=== PATIENT | male | born 1945 | race Caucasian/White ===

== ENCOUNTER 2016-08-07 00:06 | Inpatient (IN) | payer BC, MEDICARE ==
[~2016-08-07] VITALS: Ht 188 cm; Wt 121.7 kg
[2016-08-07] VITALS (12 sets, daily range): BP systolic 125–153; BP diastolic 61–83
[~2016-08-07 00:06] MED LIST: AMLO10TA4; ASPI325T70 PO; ASPI81TA2 PO; CLON0.1T; CLON0.1T PO; CRESTOR20 MG; CRESTOR20 MG PO; GEMF600T3; LOSA1TAB17; METO100T11; METO200T3 PO; OMEG1CAP43 PO
[2016-08-07] MEDS ORDERED: IV NORMAL SALINE 1000ML BAG 1,000 ML IV SCH (00:23)
[2016-08-07] MEDS ORDERED: ONDANSETRON PF 4 MG/2 ML VIAL. ONE ×2 (00:23→13:55)
[2016-08-07] MEDS ORDERED: MORPHINE SULFATE 4 MG/ML DISP.SYRIN. ONE (00:24)
[2016-08-07] MEDS ORDERED: MORPHINE SULFATE 4 MG/ML DISP.SYRIN. IV ONE (00:30)
[2016-08-07] MEDS ORDERED: ONDANSETRON PF 4 MG/2 ML VIAL. IV ONE (00:30)
[2016-08-07 00:33] LABS: BASO # 0.1 x10^3/uL (0.0-0.2); BASO % 1 % (0-3); EOS % 3 % (0-3); HEMATOCRIT 37.5 % (39.0-53.0); HEMOGLOBIN 12.2 g/dL (13.0-17.5); LYMPH % 17 % (24-48); MEAN CORPUSCULAR HEMOGLOBIN 29 pg (25-35); MEAN CORPUSCULAR HGB CONC 33 g/dL (31-37); MEAN CORPUSCULAR VOLUME 89 fL (79-100); MONO % 11 % (0-9); NEUT % 69 % (31-73); PLATELET COUNT 369 x10^3/uL (140-400)
[2016-08-07 00:36] LABS: BILIRUBIN,URINE NEGATIVE (NEG); GLUCOSE,URINE NEGATIVE (NEG); NITRITE,URINE NEGATIVE (NEG); PH,URINE 5.5; PROTEIN,URINE NEGATIVE (NEG-TRACE); UROBILINOGEN,URINE 0.2 mg/dL (0.2 mg/dL)
[2016-08-07 00:40] LABS: CALCIUM 8.7 mg/dL (8.5-10.1); CREATININE 1.6 mg/dL (0.7-1.3); GFR 42.9; POTASSIUM 4.5 mmol/L (3.5-5.1)
[2016-08-07 00:41] LABS: BACTERIA,URINE 0 /HPF (0-FEW); SQUAMOUS EPITHELIAL CELL,UR FEW /LPF
[2016-08-07 00:46] LABS: ALBUMIN 3.6 g/dL (3.4-5.0); ALBUMIN/GLOBULIN RATIO 0.9 (1.0-1.7); TOTAL BILIRUBIN 0.3 mg/dL (0.2-1.0); TOTAL PROTEIN 7.4 g/dL (6.4-8.2)
--- NOTE | 2016-08-07 01:28 | RAD ---
INDICATION: Abdomen pain. COMPARISON: None TECHNIQUE: Axial CT images obtained through the abdomen and pelvis. Intravenous contrast was not utilized. One or more of the following individualized dose reduction techniques were utilized for this examination: 1. Automated exposure control; 2. Adjustment of the mA and/or kV according to patient size; 3. Use of iterative reconstruction technique. FINDINGS: Abdominal aorta not aneurysmal. Linear opacities in lower lungs partially seen. Sub 4 millimeter nodule right lung base anteriorly. Moderate to severe calcific atherosclerosis. Probable duodenal diverticulum. No intrahepatic bile duct dilation. No peripancreatic edema. Spleen unremarkable. Right UPJ stone, 7-8 millimeters. Bilateral nonobstructive stones with the largest on the left measuring up to 2 cm. Multiple cystic lesions of the bilateral kidneys measuring up to 90 x 68 millimeters on the right. 2-3 millimeter suspected right distal ureter stone. No definite evidence of small bowel obstruction. Bladder largely decompressed Small to moderate fat containing left inguinal hernia. Scattered prominent lymph nodes within the abdomen measuring up to about 1 centimeter short axis. Degenerative changes of spine with posterior decompression changes and spinal fusion at L4-5 with pedicle screws and stabilizing rods. IMPRESSION: There are couple of right-sided ureter stones with right-sided hydronephrosis suspected. Multiple additional nonobstructive renal stones bilaterally. Multiple cystic lesions of the bilateral kidneys. Cannot evaluate for solid complex component on noncontrast imaging. If further clarification is desired dedicated renal protocol ultrasound, CT or MRI could be obtained. Scattered prominent lymph nodes within the abdomen measuring up to about 1 centimeter short axis. Sub 4 millimeter right lung base pulmonary nodule. Electronically signed by: Blas Albarado (Aug 07, 2016 01:26:32)
--- NOTE | 2016-08-07 01:47 | PHYS DOC ---
Past Medical History Past Medical History: COPD, Diabetes-Type II, High Cholesterol, Hypertension Past Surgical History: Other Additional Past Surgical Histo: knee surgery Alcohol Use: None Drug Use: None Adult General Chief Complaint Chief Complaint: FLANK PAIN HPI HPI Patient is a 71 year old gentleman with a history significant for hypertension , diabetes, COPD, kidney stones diagnosed approximately 20 years ago, presents here today complaining of right flank pain 1 day. Patient reports that the pain is colicky. Patient denies any hematuria frequency or urgency. Patient has a dysuria. Patient has any fevers shakes chills nausea vomiting or diarrhea. Patient denies any cough cold runny nose. Patient denies any history of coronary artery disease in the past. Patient denies any prior abdominal surgeries. Patient no longer smokes drinks or does any drugs. Patient is allergic to any medications. Patient reports his primary care physician is Dr. Latesha Pichardo. Patient reports that the pain is colicky in nature. Patient reports that the pain feels similar to his prior kidney stones. Patient's physical exam is significant for tenderness to palpation to his right flank region. Patient's abdomen was soft no rebound or guarding. Patient has normal active bowel sounds. Patient does not present with signs or symptoms of be consistent with an acute surgical abdomen. Patient's ER workup was significant for small amount of RBCs in his urine. Patient had a CT scan of his abdomen pelvis which revealed an 8 mm ureteropelvic junction stone on the right side with a mild to moderate amount of hydronephrosis. Patient was given 4 mg of morphine IV in the ER as well as 1 mg of Dilaudid and 50 mg of IV Toradol and Flomax in the ED with minimal relief in his discomfort. I discussed with the patient the option of discharged home with outpatient evaluation versus being admitted. Patient feels very uncomfortable with the plan to go home given that he is still having a significant amount of abdominal discomfort we will go ahead and admit the patient to the hospital and we will consult Dr. Batista. A/P #1 right flank pain most likely secondary to an 8 mm UPJ stone on the right side. Patient will be admitted to the hospital for pain management and evaluation by urology. Review of Systems Review of Systems Constitutional: Denies fever or chills [] Eyes: Denies change in visual acuity, redness, or eye pain [] HENT: Denies nasal congestion or sore throat [] Respiratory: Denies cough or shortness of breath [] All other review systems are negative except as documented in the history of present illness. Current Medications Current Medications Current Medications Medications (Trade) Dose Ordered Sig/Radha Start Time Stop Time Status Last Admin Dose Admin Morphine Sulfate 4 mg 1X ONCE 08/07/16 00:30 08/07/16 00:32 DC 08/07/16 00:28 4 MG Morphine Sulfate 4 mg 4 mg STK-MED ONCE 08/07/16 00:24 08/07/16 00:25 DC Ondansetron HCl (Zofran) 4 mg 1X ONCE 08/07/16 00:30 08/07/16 00:32 DC 08/07/16 00:27 4 MG Sodium Chloride (Iv Sodium Chloride 0.9% 1000ml Bag) 1,000 ml @ 1,000 mls/hr Q1H 08/07/16 00:23 08/07/16 01:22 DC 08/07/16 00:28 1,000 MLS/HR Allergies Allergies Allergies Coded Allergies Type Severity Reaction Last Updated Verified No Known Drug Allergies 08/03/13 No Physical Exam Physical Exam Constitutional: Well developed, well nourished, no acute distress, non-toxic appearance. [] HENT: Normocephalic, atraumatic, bilateral external ears normal, oropharynx moist, no oral exudates, nose normal. [] Eyes: PERRLA, EOMI, conjunctiva normal, no discharge. [] Neck: Normal range of motion, no tenderness, supple, no stridor. [] Cardiovascular:Heart rate regular rhythm, no murmur [] Lungs & Thorax: Bilateral breath sounds clear to auscultation [] Abdomen: Bowel sounds normal, soft, mild tenderness to palpation right flank tenderness, no masses, no pulsatile masses. [] Skin: Warm, dry, no erythema, no rash. [] Back: Right flank pain. Extremities: No tenderness, no cyanosis, no clubbing, ROM intact, no edema. [] Neurologic: Alert and oriented X 3, normal motor function, normal sensory function, no focal deficits noted. [] Psychologic: Affect normal, judgement normal, mood normal. [] Current Patient Data Vital Signs Vital Signs Date Time Temp Pulse Resp B/P Pulse Ox O2 Delivery O2 Flow Rate FiO2 08/07/16 01:16 62 20 163/93 93 Room Air 08/07/16 00:16 97.5 97.5 Lab Values Laboratory Tests Test 08/07/16 00:10 08/07/16 00:25 Urine Color Yellow Urine Clarity Clear Urine pH 5.5 Urine Specific [place] 1.015 Urine Protein Negativemg/dL (NEG-TRACE) Urine Glucose (UA) Negativemg/dL (NEG) Urine Ketones (Stick) Negativemg/dL (NEG) Urine Blood Moderate (NEG) Urine Nitrite Negative (NEG) Urine Bilirubin Negative (NEG) Urine Urobilinogen Dipstick 0.2mg/dL (0.2 mg/dL) Urine Leukocyte Esterase Negative (NEG) Urine RBC 6-10/HPF (0-2) Urine WBC 1-4/HPF (0-4) Urine Squamous Epithelial Cells Few/LPF Urine Transitional Epithelial Cells Occ/LPF Urine Bacteria 0/HPF (0-FEW) Urine Mucus Mod/LPF White Blood Count 12.0x10^3/uL (4.0-11.0) H Red Blood Count 4.20x10^6/uL (4.30-5.70) L Hemoglobin 12.2g/dL (13.0-17.5) L Hematocrit 37.5% (39.0-53.0) L Mean Corpuscular Volume 89fL (79-100) Mean Corpuscular Hemoglobin 29pg (25-35) Mean Corpuscular Hemoglobin Concent 33g/dL (31-37) Red Cell Distribution Width 15.0% (11.5-14.5) H Platelet Count 369x10^3/uL (140-400) Neutrophils (%) (Auto) 69% (31-73) Lymphocytes (%) (Auto) 17% (24-48) L Monocytes (%) (Auto) 11% (0-9) H Eosinophils (%) (Auto) 3% (0-3) Basophils (%) (Auto) 1% (0-3) Neutrophils # (Auto) 8.3x10^3uL (1.8-7.7) H Lymphocytes # (Auto) 2.0x10^3/uL (1.0-4.8) Monocytes # (Auto) 1.3x10^3/uL (0.0-1.1) H Eosinophils # (Auto) 0.4x10^3/uL (0.0-0.7) Basophils # (Auto) 0.1x10^3/uL (0.0-0.2) Sodium Level 141mmol/L (136-145) Potassium Level 4.5mmol/L (3.5-5.1) Chloride Level 105mmol/L (98-107) Carbon Dioxide Level 26mmol/L (21-32) Anion Gap 10 (6-14) Blood Urea Nitrogen 30mg/dL (8-26) H Creatinine 1.6mg/dL (0.7-1.3) H Estimated GFR (Cockcroft-Gault) 42.9 BUN/Creatinine Ratio 19 (6-20) Glucose Level 136mg/dL (70-99) H Calcium Level 8.7mg/dL (8.5-10.1) Total Bilirubin 0.3mg/dL (0.2-1.0) Aspartate Amino Transferase (AST) 12U/L (15-37) L Alanine Aminotransferase (ALT) 23U/L (16-63) Alkaline Phosphatase 97U/L (46-116) Total Protein 7.4g/dL (6.4-8.2) Albumin 3.6g/dL (3.4-5.0) Albumin/Globulin Ratio 0.9 (1.0-1.7) L Lipase 191U/L (73-393) Laboratory Tests 08/07/16 00:25 Laboratory Tests 08/07/16 00:25 EKG EKG [] Radiology/Procedures Radiology/Procedures [] Course & Med Decision Making Course & Med Decision Making Pertinent Labs and Imaging studies reviewed. (See chart for details) [] Dragon Disclaimer Dragon Disclaimer This electronic medical record was generated, in whole or in part, using a voice recognition dictation system. Departure Departure Impression: Primary Impression: Renal colic Additional Impressions: Intractable abdominal pain Renal colic on right side Hydronephrosis Disposition: ADMITTED INPATIENT Admitting Physician: Nathan Crowder Condition: IMPROVED Referrals: LATESHA PICHARDO MD (PCP) Problem Qualifiers BO ALLRED MD Aug 07, 2016 01:47
[2016-08-07] MEDS ORDERED: KETOROLAC 15 MG/ML VIAL. IV ONE (02:00)
[2016-08-07] MEDS ORDERED: HYDROmorphone 2 MG/ML VIAL IV ONE (02:00)
[2016-08-07] MEDS ORDERED: ACETAMINOPHEN 325 MG TABLET. PO PRN ×2 (02:15→14:00)
[2016-08-07] MEDS ORDERED: TAMSULOSIN 0.4 MG CAP.ER.24H. PO ONE (02:15)
[2016-08-07] MEDS ORDERED: ONDANSETRON PF 4 MG/2 ML VIAL. IV PRN ×3 (02:15→14:00)
--- NOTE | 2016-08-07 02:30 | ACF ---
Admission Forms Criteria RENAL COLIC AND KIDNEY STONES Clinical Indications for Admission to Inpatient Care ( Place 'X' for any and all applicable criteria): Admission is indicated for ANY ONE of the following (1)(2)(3)(4): [X]I. Inpatient admission required rather than observation care (Also use Renal Colic and Kidney Stones: Observation Care Criteria as appropriate) because of ANY ONE of the following: [ ]a) Severe pain requiring acute inpatient management [ ]b) Urinary tract infection identified [ ]c) Vomiting that is severe or persistent [ ]d) IV fluid required rather than oral rehydration to replace significant ongoing (eg, for greater than 24 hours) losses (greater than 200 mL/hr or 3 L/m2 per day) [ ]e) Percutaneous or open drainage (eg, abscess, biliary tract) procedures [X]f) Other condition, treatment or monitoring requiring inpatient admission [ ]II. Impending acute renal failure [ ]III. Bilateral obstruction [ ]IV. Single kidney with obstruction [ ]V. Transplanted kidney with obstruction [ ]. Possible open surgical procedure needed (eg, pyonephrosis, stone removal not amendable to other means) [ ]VII. Hemodynamic instability Extended stay beyond goal length of stay may be needed for(2)(3)(31): [ ]a) Failed initial stone removal (32) [ ]b) Pyonephrosis [ ]c) Obstructive uropathy with urinary tract infection [ ]d) Procedure complications [ ]e) Comorbidities (22) The original [email or web address] content created by [employer] has been revised. The portions of the content which have been revised are identified through the use of italic text or in bold, and [facility] has neither reviewed nor approved the modified material. All other unmodified content is copyright [employer]. Please see references footnoted in the original [employer] edition 2016 Admission Criteria Met?: Yes BRIGITTE SPAIN Aug 07, 2016 02:30
[2016-08-07] MEDS: IV NORMAL SALINE 1000ML BAG 1,000 ML IV SCH ×3 (03:23→19:51)
[2016-08-07] MEDS: FENTANYL PF 100 MCG/2 ML VIAL. IV PRN ×2 (05:36→11:35)
[2016-08-07] MEDS ORDERED: IV RINGERS,LACTATED 1000ML 1,000 ML IV SCH (11:25)
[2016-08-07] MEDS ORDERED: LIDOCAINE 1% 1 ML SYRINGE. ID PRN (11:30)
[2016-08-07] MEDS ORDERED: MORPHINE SULFATE 2 MG/ML DISP.SYRIN. IV PRN (11:30)
[2016-08-07] MEDS ORDERED: PROCHLORPERAZINE 10 MG/2 ML VIAL. IV PRN (11:30)
[2016-08-07] MEDS ORDERED: FENTANYL PF 100 MCG/2 ML VIAL. IV PRN ×2 (11:30)
[2016-08-07] MEDS ORDERED: HYDROmorphone 2 MG/ML VIAL IV PRN (11:30)
[2016-08-07] MEDS ORDERED: IOHEXOL 300 MG/ML 50 ML VIAL. ONE (13:29)
[2016-08-07] MEDS ORDERED: PROPOFOL 20 ML IV ONE (13:55)
[2016-08-07] MEDS ORDERED: FAMOTIDINE 20 MG/2 ML VIAL ONE (13:55)
[2016-08-07] MEDS ORDERED: FENTANYL PF 100 MCG/2 ML VIAL. ONE (13:58)
[2016-08-07] MEDS ORDERED: LIDOCAINE 2% 100 MG/5 ML SYRINGE. ONE (13:59)
[2016-08-07] MEDS ORDERED: ALBUTEROL SULFATE 2.5 MG/3 ML NEBU. NEB PRN (14:00)
[2016-08-07] MEDS ORDERED: hydrALAZINE 20 MG/ML VIAL. IVP PRN (14:00)
[2016-08-07] MEDS ORDERED: HYDROCODONE/APAP 5/325MG TABLET. PO PRN (14:00)
--- NOTE | 2016-08-07 14:03 | PDOC1 ---
History and Physical Past Medical History Cardiovascular: HTN, Hyperlipidemia Pulmonary: COPD Family History Family History: Heart Disease Social History ALCOHOL: none Current Problem List Problem List Problems Medical Problems: (1) Hydronephrosis Status: Acute (2) Intractable abdominal pain Status: Acute (3) Renal colic Status: Acute (4) Renal colic on right side Status: Acute Current Medications Current Medications Current Medications Medications (Trade) Dose Ordered Sig/Radha Start Time Stop Time Status Last Admin Dose Admin Acetaminophen (Tylenol) 650 mg PRN Q4HRS PRN 08/07/16 02:15 08/08/16 02:14 Famotidine (Pepcid) 20 mg STK-MED ONCE 08/07/16 13:55 08/07/16 13:56 DC Fentanyl Citrate (Fentanyl 2ml Vial) 100 mcg STK-MED ONCE 08/07/16 13:58 08/07/16 13:59 DC Fentanyl Citrate 50 mcg 50 mcg PRN Q2HR PRN 08/07/16 02:15 08/08/16 02:14 08/07/16 11:35 50 MCG Hydromorphone HCl (Dilaudid) 0.5 mg PRN Q10MIN PRN 08/07/16 11:30 08/08/16 11:29 Iohexol 50 ml 50 ml STK-MED ONCE 08/07/16 13:29 08/07/16 13:30 DC Ketorolac Tromethamine (Toradol) 15 mg 1X ONCE 08/07/16 02:00 08/07/16 02:01 DC 08/07/16 02:06 15 MG Lactated Ringer's (Iv Lactated Ringers) 1,000 ml @ 30 mls/hr Q24H 08/07/16 11:25 08/07/16 23:24 Lidocaine HCl 2 ml PRN 1X PRN 08/07/16 11:30 08/08/16 11:29 Morphine Sulfate 1 mg 1 mg PRN Q10MIN PRN 08/07/16 11:30 08/08/16 11:29 Ondansetron HCl (Zofran) 4 mg STK-MED ONCE 08/07/16 13:55 08/07/16 13:56 DC Prochlorperazine Edisylate (Compazine) 5 mg PACU PRN PRN 08/07/16 11:30 08/08/16 11:29 Propofol (Diprivan) 20 ml @ As Directed STK-MED ONCE 08/07/16 13:55 08/07/16 13:56 DC Sodium Chloride (Iv Sodium Chloride 0.9% 1000ml Bag) 1,000 ml @ 100 mls/hr Q10H 08/07/16 02:15 08/08/16 02:14 08/07/16 13:10 100 MLS/HR Tamsulosin HCl (Flomax) 0.4 mg 1X ONCE 08/07/16 02:15 08/07/16 02:16 DC 08/07/16 02:13 0.4 MG Allergies Allergies Allergies Coded Allergies Type Severity Reaction Last Updated Verified No Known Drug Allergies 08/03/13 No ROS Review of System CONSTITUTIONAL: No fever or chills EYES: No recent changes SKIN: No rash or itching CARDIOVASCULAR: No chest pain, syncope, palpitations, or edema RESPIRATORY: No SOB or cough GASTROINTESTINAL: right flank abdominal pain NEUROLOGICAL: No headaches or weakness ENDOCRINE: No cold or heat intolerance GENITOURINARY: No urgency or frequency of urination MUSCULOSKELETAL: No back pain or joint pain LYMPHATICS: No enlarged lymph nodes PSYCHIATRIC: No anxiety or depression Physical Exam Physical Exam GEN.: No apparent distress. Alert and oriented. HEENT: Head is normocephalic, atraumatic NECK: Supple. no JVD LUNGS: Clear to auscultation. HEART: RRR, S1, S2 present. Peripheral pulses intact ABDOMEN: Right flank tenderness Positive bowel sounds. EXTREMITIES: Without any cyanosis. NEUROLOGIC: Normal speech, normal tone PSYCHIATRIC: Normal affect, normal mood. SKIN: No ulcerations Vitals Vitals Vital Signs Date Time Temp Pulse Resp B/P Pulse Ox O2 Delivery O2 Flow Rate FiO2 08/07/16 12:05 18 95 Room Air 08/07/16 11:22 97.7 59 139/71 97.7 Labs Labs Laboratory Tests Test 08/07/16 00:10 08/07/16 00:25 Urine Color Yellow Urine Clarity Clear Urine pH 5.5 Urine Specific [place] 1.015 Urine Protein Negativemg/dL (NEG-TRACE) Urine Glucose (UA) Negativemg/dL (NEG) Urine Ketones (Stick) Negativemg/dL (NEG) Urine Blood Moderate (NEG) Urine Nitrite Negative (NEG) Urine Bilirubin Negative (NEG) Urine Urobilinogen Dipstick 0.2mg/dL (0.2 mg/dL) Urine Leukocyte Esterase Negative (NEG) Urine RBC 6-10/HPF (0-2) Urine WBC 1-4/HPF (0-4) Urine Squamous Epithelial Cells Few/LPF Urine Transitional Epithelial Cells Occ/LPF Urine Bacteria 0/HPF (0-FEW) Urine Mucus Mod/LPF White Blood Count 12.0x10^3/uL (4.0-11.0) Red Blood Count 4.20x10^6/uL (4.30-5.70) Hemoglobin 12.2g/dL (13.0-17.5) Hematocrit 37.5% (39.0-53.0) Mean Corpuscular Volume 89fL (79-100) Mean Corpuscular Hemoglobin 29pg (25-35) Mean Corpuscular Hemoglobin Concent 33g/dL (31-37) Red Cell Distribution Width 15.0% (11.5-14.5) Platelet Count 369x10^3/uL (140-400) Neutrophils (%) (Auto) 69% (31-73) Lymphocytes (%) (Auto) 17% (24-48) Monocytes (%) (Auto) 11% (0-9) Eosinophils (%) (Auto) 3% (0-3) Basophils (%) (Auto) 1% (0-3) Neutrophils # (Auto) 8.3x10^3uL (1.8-7.7) Lymphocytes # (Auto) 2.0x10^3/uL (1.0-4.8) Monocytes # (Auto) 1.3x10^3/uL (0.0-1.1) Eosinophils # (Auto) 0.4x10^3/uL (0.0-0.7) Basophils # (Auto) 0.1x10^3/uL (0.0-0.2) Sodium Level 141mmol/L (136-145) Potassium Level 4.5mmol/L (3.5-5.1) Chloride Level 105mmol/L (98-107) Carbon Dioxide Level 26mmol/L (21-32) Anion Gap 10 (6-14) Blood Urea Nitrogen 30mg/dL (8-26) Creatinine 1.6mg/dL (0.7-1.3) Estimated GFR (Cockcroft-Gault) 42.9 BUN/Creatinine Ratio 19 (6-20) Glucose Level 136mg/dL (70-99) Calcium Level 8.7mg/dL (8.5-10.1) Total Bilirubin 0.3mg/dL (0.2-1.0) Aspartate Amino Transf (AST/SGOT) 12U/L (15-37) Alanine Aminotransferase (ALT/SGPT) 23U/L (16-63) Alkaline Phosphatase 97U/L (46-116) Total Protein 7.4g/dL (6.4-8.2) Albumin 3.6g/dL (3.4-5.0) Albumin/Globulin Ratio 0.9 (1.0-1.7) Lipase 191U/L (73-393) Laboratory Tests Test 08/07/16 00:10 08/07/16 00:25 Urine Color Yellow Urine Clarity Clear Urine pH 5.5 Urine Specific [place] 1.015 Urine Protein Negativemg/dL (NEG-TRACE) Urine Glucose (UA) Negativemg/dL (NEG) Urine Ketones (Stick) Negativemg/dL (NEG) Urine Blood Moderate (NEG) Urine Nitrite Negative (NEG) Urine Bilirubin Negative (NEG) Urine Urobilinogen Dipstick 0.2mg/dL (0.2 mg/dL) Urine Leukocyte Esterase Negative (NEG) Urine RBC 6-10/HPF (0-2) Urine WBC 1-4/HPF (0-4) Urine Squamous Epithelial Cells Few/LPF Urine Transitional Epithelial Cells Occ/LPF Urine Bacteria 0/HPF (0-FEW) Urine Mucus Mod/LPF White Blood Count 12.0x10^3/uL (4.0-11.0) Red Blood Count 4.20x10^6/uL (4.30-5.70) Hemoglobin 12.2g/dL (13.0-17.5) Hematocrit 37.5% (39.0-53.0) Mean Corpuscular Volume 89fL (79-100) Mean Corpuscular Hemoglobin 29pg (25-35) Mean Corpuscular Hemoglobin Concent 33g/dL (31-37) Red Cell Distribution Width 15.0% (11.5-14.5) Platelet Count 369x10^3/uL (140-400) Neutrophils (%) (Auto) 69% (31-73) Lymphocytes (%) (Auto) 17% (24-48) Monocytes (%) (Auto) 11% (0-9) Eosinophils (%) (Auto) 3% (0-3) Basophils (%) (Auto) 1% (0-3) Neutrophils # (Auto) 8.3x10^3uL (1.8-7.7) Lymphocytes # (Auto) 2.0x10^3/uL (1.0-4.8) Monocytes # (Auto) 1.3x10^3/uL (0.0-1.1) Eosinophils # (Auto) 0.4x10^3/uL (0.0-0.7) Basophils # (Auto) 0.1x10^3/uL (0.0-0.2) Sodium Level 141mmol/L (136-145) Potassium Level 4.5mmol/L (3.5-5.1) Chloride Level 105mmol/L (98-107) Carbon Dioxide Level 26mmol/L (21-32) Anion Gap 10 (6-14) Blood Urea Nitrogen 30mg/dL (8-26) Creatinine 1.6mg/dL (0.7-1.3) Estimated GFR (Cockcroft-Gault) 42.9 BUN/Creatinine Ratio 19 (6-20) Glucose Level 136mg/dL (70-99) Calcium Level 8.7mg/dL (8.5-10.1) Total Bilirubin 0.3mg/dL (0.2-1.0) Aspartate Amino Transf (AST/SGOT) 12U/L (15-37) Alanine Aminotransferase (ALT/SGPT) 23U/L (16-63) Alkaline Phosphatase 97U/L (46-116) Total Protein 7.4g/dL (6.4-8.2) Albumin 3.6g/dL (3.4-5.0) Albumin/Globulin Ratio 0.9 (1.0-1.7) Lipase 191U/L (73-393) VTE Prophylaxis Ordered VTE Prophylaxis Devices: Yes VTE Pharmacological Prophylaxi: No ALF CHU MD Aug 07, 2016 14:03
[2016-08-07] MEDS: ASPIRIN ENTERIC COATED 325 MG TABLET.DR. PO SCH (14:30)
[2016-08-07] MEDS ORDERED: LEVOFLOXACIN PREMIX 500 MG/100 ML BAG. IV ONE (14:30)
[2016-08-07] MEDS ORDERED: EPHEDRINE SULFATE 50 MG/ML VIAL. ONE (15:10)
[2016-08-07] MEDS ORDERED: DEXAMETHASONE SOD PHOS 20 MG/5 ML VIAL. ONE (15:10)
--- NOTE | 2016-08-07 15:17 | HP ---
ADMIT DATE: 08/07/2016 CHIEF COMPLAINT: Right flank pain. HISTORY OF PRESENT ILLNESS: A 71-year-old male patient with prior history of hypertension, diabetes, and COPD, who presented to the ER with complaints of right flank pain for 1-day duration. The patient has a prior history of renal stones that was diagnosed nearly 20 years ago. Pain is intractable in nature and colicky which is getting better with fentanyl given here. He denies any fever, chills, nausea, vomiting, or hematuria. He was seen by our primary care doctor, Dr. Yang. PAST MEDICAL HISTORY: COPD, prediabetes, cholesterol, and hypertension. PAST SURGICAL HISTORY: Knee surgery and back surgery. PERSONAL HISTORY: No smoking, no alcohol, no drug abuse. FAMILY HISTORY: No kidney stones. REVIEW OF SYSTEMS: Please see my electronic H and P. PHYSICAL EXAMINATION: Please see my electronic H and P. ALLERGIES: [id number]. LABORATORY DATA: Sodium 141, potassium 4.5, carbon dioxide 25, anion gap 10, BUN is 30, creatinine 1.6, and glucose is 136. Hematology: WBC 12,000, hemoglobin is 12.2, MCV is 89, neutrophils 16. Urine, nitrites negative, bilirubin negative, leukocyte esterase negative. IMAGING STUDIES: 1. Abdomen and pelvis CT showed right-sided ureter stones with right-sided hydronephrosis suspected, multiple additional nonobstructing renal stones bilaterally. 2. Multiple cystic lesions in bilateral kidneys, cannot rule out complex component. 3. A 4-mm right lung base pulmonary nodule. ASSESSMENT AND PLAN: 1. Intractable right flank pain due to right-sided ureteral stone with mild hydronephrosis. 2. Acute kidney injury, possible obstructive uropathy. 3. Multiple nonobstructive renal stones bilaterally. 4. Multiple cystic lesions. 5. Chronic obstructive pulmonary disease. 6. Hypertension, chronic. 7. Prediabetes, chronic. PLAN: 1. The patient has been admitted, and we are treating his pain with IV fentanyl q.2 h. as needed. Urology has been consulted for possible ureteral stent placement today. 2. Monitor WBC, CBC, and renal functions in the a.m. 3. Avoid CO2 narcosis. 4. Continue IV hydration at least 100 mL per hour. 5. P.r.n. Zofran for nausea and vomiting. 6. Resume home medications. ALF CHU MD DR: Pita JOB#: [id number] / [id number]
[2016-08-07] MEDS ORDERED: SEVOFLURANE 16 TO 30 MINUTES. IH ONE (15:26)
--- NOTE | 2016-08-07 15:42 | PDOC ---
BRIEF OPERATIVE NOTE Date: Aug 07, 2016 Pre-Op Diagnosis Right flank pain, proximal Right ureteral calculus (8mm) Post-Op Diagnosis Same Procedure Performed Cystoscopy right ureteral stent placement 6fr by 26cm) Surgeon Lynne Anesthesia Type: General Specimens Obtained None Findings same Complications None Additional Remarks Home, will schedule for shock-wave lithotripsy MORGAN HENDERSON DO Aug 07, 2016 15:42
--- NOTE | 2016-08-07 18:07 | OP ---
DATE OF SURGERY: 08/07/2016 PREOPERATIVE DIAGNOSIS: Right flank pain, proximal right ureteral calculus (8 mm). POSTOPERATIVE DIAGNOSIS: Right flank pain, proximal right ureteral calculus (8 mm). PROCEDURE: Cystoscopy, right retrograde pyelogram, placement of indwelling right ureteral stent (6-Kazakh x 26 cm). SURGEON: Morgan Henderson DO. ANESTHESIA: General. INDICATIONS AND JUDGMENT: This is a 71-year-old male who was admitted through the Emergency Room with acute right flank pain. CT scan was performed which revealed an 8 mm calculus in the proximal right ureter with high-grade obstruction. The patient was admitted to the hospital and placed on IV hydration and analgesia, but he continued to have significant pain and discomfort. Therefore, it was felt he would benefit from cystoscopy and stent placement to relieve the obstruction to the kidney and then schedule him on a later date for shockwave lithotripsy. This was explained to the patient. He appeared to understand and was agreeable. DESCRIPTION OF PROCEDURE: The patient was preloaded with Levaquin 500 mg IV. He was taken to the operating room and placed on the operating room table in supine position, given a general anesthetic with satisfactory results. He was then placed on a dorsolithotomy position using Henry stirrups since we do not have a cystoscopy table. A C-arm was moved into position. Rigid cystoscopy was performed. The ureter was normal in course and caliber. The prostate was about 20-25 grams not obstructing in nature. Scope was advanced into the bladder. The bladder was examined. There was no evidence of calculi or tumors within the bladder. The right ureteral orifice was identified. It was cannulated with an 8 Kazakh cone tip ureteral catheter. Contrast was injected. The calculus was seen in the proximal right ureter though I think the pressure from the retrograde catheter pushed the stone and up into the renal pelvis. I then advanced a 0.035 Glidewire up the right ureteral orifice up the ureter and into the renal pelvis. Following that, I advanced a 6-Kazakh x 26 cm double-J ureteral stent over the Glidewire under fluoroscopy up into the renal pelvis. The positioning appeared to be satisfactory, therefore, the wire was removed leaving the stent in place. It appears now that the calculus was pushed up into the right renal pelvis perhaps middle pole cecy. The instruments were removed. The patient tolerated the procedure well and was sent to recovery room in satisfactory condition. Plans will be to send the patient home with the stent. He was given a prescription for Cipro antibiotics, hydrocodone 5 for pain as needed and generic Pyridium. We will get a KUB of the abdomen to document the new position of the stone and schedule him for shockwave lithotripsy. MORGAN HENDERSON DO DR: JUAN DAVID/bartolo JOB#: [id number] / [id number]
--- NOTE | 2016-08-08 01:42 | CONS ---
DATE OF CONSULTATION: 08/07/2016 CHIEF COMPLAINT: Acute right flank pain, right ureteral calculus. HISTORY OF PRESENT ILLNESS: This is a 71-year-old male that presented to the Emergency Room with acute right flank pain. The patient has a previous history of kidney stones, but he states that, that was about 20 years ago. PAST MEDICAL HISTORY: The patient has a history of COPD, type 2 diabetes, hypertension. PAST SURGICAL HISTORY: The patient has had a knee surgery. ALLERGIES: No known drug allergies. REVIEW OF SYSTEMS: A 14-point review of systems performed, most significant as his HPI. PHYSICAL EXAMINATION: GENERAL DESCRIPTION: A 71-year-old male, appears to be in moderate distress secondary to right flank pain. ABDOMEN: Soft, right flank pain to palpation, negative for left flank pain. No palpable abdominal masses. No guarding, rigidity, no rebound tenderness. No suprapubic tenderness. RECTAL: Not performed today. MUSCULOSKELETAL: Good range of motion. Negative for cyanosis or edema. LABORATORY DATA: The patient's white blood cell count was 12.0, hemoglobin 12.2, hematocrit 37.5, platelets are adequate. The patient's electrolytes were normal. His BUN is 30, creatinine 1.6, glucose 136. Urinalysis: Damaris-colored urine, 6-10 red blood cells per high-powered field, 1-4 white blood cells. X-RAY STUDIES: Noncontrast CT scan of the abdomen and pelvis was performed while in the Emergency Room. This reveals a calculus approximately 7-8 mm in size at the right ureteropelvic junction. He has bilateral nephrolithiasis with a kidney stone in the left renal pelvis measuring 2 cm, which is not obstructing in nature. He has multiple cysts in both kidneys and there is a questionable 2- to 3-mm calculus in the distal right ureter. The patient appears to have had some spinal fusion surgery at L4-L5. IMPRESSION: 1. Acute right flank pain. 2. A 7- to 8-mm calculus at the right UPJ. 3. Possible distal right ureteral calculus measuring 2-3 mm. PLAN: 1. I discussed the findings with the patient. I think he would benefit from cystoscopy, right ureteral stent placement to relieve the pain and pressure on the right kidney. 2. Following that, we will schedule him for outpatient shockwave lithotripsy. He appears to understand and is agreeable. He is on the schedule later today for cystoscopy, stent placement. MORGAN HENDERSON DO DR: JUAN DAVID/bartolo JOB#: [id number] / [id number]
[2016-08-08 03:00] VITALS: BP_SYST 125; BP_SYST 142; BP_DIAS 68; BP_DIAS 83
[2016-08-08 03:40] LABS: BASO % 0 % (0-3); EOS % 0 % (0-3); HEMOGLOBIN 11.4 g/dL (13.0-17.5); LYMPH # 1.1 x10^3/uL (1.0-4.8); LYMPH % 10 % (24-48); MEAN CORPUSCULAR HEMOGLOBIN 30 pg (25-35); MEAN CORPUSCULAR HGB CONC 34 g/dL (31-37); MEAN CORPUSCULAR VOLUME 89 fL (79-100); MONO % 7 % (0-9); NEUT % 83 % (31-73); PLATELET COUNT 340 x10^3/uL (140-400); RED BLOOD COUNT 3.83 x10^6/uL (4.30-5.70); RED CELL DISTRIBUTION WIDTH 14.8 % (11.5-14.5); WHITE BLOOD COUNT 10.5 x10^3/uL (4.0-11.0)
[2016-08-08 03:55] LABS: CALCIUM 8.3 mg/dL (8.5-10.1); CREATININE 1.7 mg/dL (0.7-1.3); POTASSIUM 4.5 mmol/L (3.5-5.1)
[2016-08-08 07:00] VITALS: BP 133/85
--- NOTE | 2016-08-08 07:46 | RAD ---
Portable abdomen, 08/07/2016: History: Follow-up right stent placement A right ureteral stent is in place in satisfactory position. Several bilateral intrarenal calculi are identified. On the CT study of earlier in the day there was a calculus lodged in the proximal right ureter near the ureteropelvic junction level. A calculus is no longer visible at that level. It has probably been pushed back into the renal collecting system during stent placement. The abdominal gas pattern is unremarkable. Postsurgical changes with instrumentation are noted in the lower lumbar spine. IMPRESSION: 1. The right ureteral stent is in satisfactory position. 2. Multiple bilateral intrarenal calculi.
[2016-08-08] MEDS: OMEGA-3 FATTY ACIDS/FISH OIL 1,000 MG CAPSULE. PO SCH (08:52)
[2016-08-08] MEDS: ASPIRIN ENTERIC COATED 325 MG TABLET.DR. PO SCH (08:52)
--- NOTE | 2016-08-08 10:52 | PDOC ---
PROGRESS NOTES Chief Complaint Chief Complaint A/P 1. Intractable right flank pain due to right-sided ureteral stone with mild hydronephrosis Improved. 2. Acute kidney injury, possible obstructive uropathy. not improved. 3. Multiple nonobstructive renal stones bilaterally. 4. Multiple cystic lesions. 5. Chronic obstructive pulmonary disease. 6. Hypertension, chronic. 7. Prediabetes, chronic. 8. Pulmonary nodules need out pt follow up Plan C/p cystoscopy right ureteral stent placement IV Hydration at 125mls/hr Pain control Monitor BMP Monitor hemoglobin Vitals Vitals Vital Signs Date Time Temp Pulse Resp B/P Pulse Ox O2 Delivery O2 Flow Rate FiO2 08/08/16 08:00 Room Air 10.0 08/08/16 07:00 97.9 55 20 133/85 95 97.9 Physical Exam General: Alert, Oriented X3 Heart: Regular rate, Normal S1 Lungs: Clear Abdomen: Normal bowel sounds Extremities: No clubbing Labs LABS Laboratory Tests Test 08/07/16 15:59 08/07/16 20:43 08/08/16 03:18 08/08/16 07:15 Glucose (Fingerstick) 86mg/dL (70-99) 175mg/dL (70-99) 99mg/dL (70-99) White Blood Count 10.5x10^3/uL (4.0-11.0) Red Blood Count 3.83x10^6/uL (4.30-5.70) Hemoglobin 11.4g/dL (13.0-17.5) Hematocrit 34.0% (39.0-53.0) Mean Corpuscular Volume 89fL (79-100) Mean Corpuscular Hemoglobin 30pg (25-35) Mean Corpuscular Hemoglobin Concent 34g/dL (31-37) Red Cell Distribution Width 14.8% (11.5-14.5) Platelet Count 340x10^3/uL (140-400) Neutrophils (%) (Auto) 83% (31-73) Lymphocytes (%) (Auto) 10% (24-48) Monocytes (%) (Auto) 7% (0-9) Eosinophils (%) (Auto) 0% (0-3) Basophils (%) (Auto) 0% (0-3) Neutrophils # (Auto) 8.7x10^3uL (1.8-7.7) Lymphocytes # (Auto) 1.1x10^3/uL (1.0-4.8) Monocytes # (Auto) 0.7x10^3/uL (0.0-1.1) Eosinophils # (Auto) 0.0x10^3/uL (0.0-0.7) Basophils # (Auto) 0.0x10^3/uL (0.0-0.2) Sodium Level 141mmol/L (136-145) Potassium Level 4.5mmol/L (3.5-5.1) Chloride Level 108mmol/L (98-107) Carbon Dioxide Level 23mmol/L (21-32) Anion Gap 10 (6-14) Blood Urea Nitrogen 29mg/dL (8-26) Creatinine 1.7mg/dL (0.7-1.3) Estimated GFR (Cockcroft-Gault) 40.0 Glucose Level 110mg/dL (70-99) Calcium Level 8.3mg/dL (8.5-10.1) Assessment and Plan Assessmemt and Plan Problems Medical Problems: (1) Hydronephrosis Status: Acute (2) Intractable abdominal pain Status: Acute (3) Renal colic Status: Acute (4) Renal colic on right side Status: Acute Problems: Comment Review of Relevant I have reviewed the following items collin (where applicable) has been applied. Labs Laboratory Tests Test 08/07/16 00:10 08/07/16 00:25 08/07/16 15:59 08/07/16 20:43 Urine Color Yellow Urine Clarity Clear Urine pH 5.5 Urine Specific [place] 1.015 Urine Protein Negativemg/dL (NEG-TRACE) Urine Glucose (UA) Negativemg/dL (NEG) Urine Ketones (Stick) Negativemg/dL (NEG) Urine Blood Moderate (NEG) Urine Nitrite Negative (NEG) Urine Bilirubin Negative (NEG) Urine Urobilinogen Dipstick 0.2mg/dL (0.2 mg/dL) Urine Leukocyte Esterase Negative (NEG) Urine RBC 6-10/HPF (0-2) Urine WBC 1-4/HPF (0-4) Urine Squamous Epithelial Cells Few/LPF Urine Transitional Epithelial Cells Occ/LPF Urine Bacteria 0/HPF (0-FEW) Urine Mucus Mod/LPF White Blood Count 12.0x10^3/uL (4.0-11.0) Red Blood Count 4.20x10^6/uL (4.30-5.70) Hemoglobin 12.2g/dL (13.0-17.5) Hematocrit 37.5% (39.0-53.0) Mean Corpuscular Volume 89fL (79-100) Mean Corpuscular Hemoglobin 29pg (25-35) Mean Corpuscular Hemoglobin Concent 33g/dL (31-37) Red Cell Distribution Width 15.0% (11.5-14.5) Platelet Count 369x10^3/uL (140-400) Neutrophils (%) (Auto) 69% (31-73) Lymphocytes (%) (Auto) 17% (24-48) Monocytes (%) (Auto) 11% (0-9) Eosinophils (%) (Auto) 3% (0-3) Basophils (%) (Auto) 1% (0-3) Neutrophils # (Auto) 8.3x10^3uL (1.8-7.7) Lymphocytes # (Auto) 2.0x10^3/uL (1.0-4.8) Monocytes # (Auto) 1.3x10^3/uL (0.0-1.1) Eosinophils # (Auto) 0.4x10^3/uL (0.0-0.7) Basophils # (Auto) 0.1x10^3/uL (0.0-0.2) Sodium Level 141mmol/L (136-145) Potassium Level 4.5mmol/L (3.5-5.1) Chloride Level 105mmol/L (98-107) Carbon Dioxide Level 26mmol/L (21-32) Anion Gap 10 (6-14) Blood Urea Nitrogen 30mg/dL (8-26) Creatinine 1.6mg/dL (0.7-1.3) Estimated GFR (Cockcroft-Gault) 42.9 BUN/Creatinine Ratio 19 (6-20) Glucose Level 136mg/dL (70-99) Calcium Level 8.7mg/dL (8.5-10.1) Total Bilirubin 0.3mg/dL (0.2-1.0) Aspartate Amino Transf (AST/SGOT) 12U/L (15-37) Alanine Aminotransferase (ALT/SGPT) 23U/L (16-63) Alkaline Phosphatase 97U/L (46-116) Total Protein 7.4g/dL (6.4-8.2) Albumin 3.6g/dL (3.4-5.0) Albumin/Globulin Ratio 0.9 (1.0-1.7) Lipase 191U/L (73-393) Glucose (Fingerstick) 86mg/dL (70-99) 175mg/dL (70-99) Test 08/08/16 03:18 08/08/16 07:15 White Blood Count 10.5x10^3/uL (4.0-11.0) Red Blood Count 3.83x10^6/uL (4.30-5.70) Hemoglobin 11.4g/dL (13.0-17.5) Hematocrit 34.0% (39.0-53.0) Mean Corpuscular Volume 89fL (79-100) Mean Corpuscular Hemoglobin 30pg (25-35) Mean Corpuscular Hemoglobin Concent 34g/dL (31-37) Red Cell Distribution Width 14.8% (11.5-14.5) Platelet Count 340x10^3/uL (140-400) Neutrophils (%) (Auto) 83% (31-73) Lymphocytes (%) (Auto) 10% (24-48) Monocytes (%) (Auto) 7% (0-9) Eosinophils (%) (Auto) 0% (0-3) Basophils (%) (Auto) 0% (0-3) Neutrophils # (Auto) 8.7x10^3uL (1.8-7.7) Lymphocytes # (Auto) 1.1x10^3/uL (1.0-4.8) Monocytes # (Auto) 0.7x10^3/uL (0.0-1.1) Eosinophils # (Auto) 0.0x10^3/uL (0.0-0.7) Basophils # (Auto) 0.0x10^3/uL (0.0-0.2) Sodium Level 141mmol/L (136-145) Potassium Level 4.5mmol/L (3.5-5.1) Chloride Level 108mmol/L (98-107) Carbon Dioxide Level 23mmol/L (21-32) Anion Gap 10 (6-14) Blood Urea Nitrogen 29mg/dL (8-26) Creatinine 1.7mg/dL (0.7-1.3) Estimated GFR (Cockcroft-Gault) 40.0 Glucose Level 110mg/dL (70-99) Calcium Level 8.3mg/dL (8.5-10.1) Glucose (Fingerstick) 99mg/dL (70-99) Laboratory Tests Test 08/07/16 15:59 08/07/16 20:43 08/08/16 03:18 08/08/16 07:15 Glucose (Fingerstick) 86mg/dL (70-99) 175mg/dL (70-99) 99mg/dL (70-99) White Blood Count 10.5x10^3/uL (4.0-11.0) Red Blood Count 3.83x10^6/uL (4.30-5.70) Hemoglobin 11.4g/dL (13.0-17.5) Hematocrit 34.0% (39.0-53.0) Mean Corpuscular Volume 89fL (79-100) Mean Corpuscular Hemoglobin 30pg (25-35) Mean Corpuscular Hemoglobin Concent 34g/dL (31-37) Red Cell Distribution Width 14.8% (11.5-14.5) Platelet Count 340x10^3/uL (140-400) Neutrophils (%) (Auto) 83% (31-73) Lymphocytes (%) (Auto) 10% (24-48) Monocytes (%) (Auto) 7% (0-9) Eosinophils (%) (Auto) 0% (0-3) Basophils (%) (Auto) 0% (0-3) Neutrophils # (Auto) 8.7x10^3uL (1.8-7.7) Lymphocytes # (Auto) 1.1x10^3/uL (1.0-4.8) Monocytes # (Auto) 0.7x10^3/uL (0.0-1.1) Eosinophils # (Auto) 0.0x10^3/uL (0.0-0.7) Basophils # (Auto) 0.0x10^3/uL (0.0-0.2) Sodium Level 141mmol/L (136-145) Potassium Level 4.5mmol/L (3.5-5.1) Chloride Level 108mmol/L (98-107) Carbon Dioxide Level 23mmol/L (21-32) Anion Gap 10 (6-14) Blood Urea Nitrogen 29mg/dL (8-26) Creatinine 1.7mg/dL (0.7-1.3) Estimated GFR (Cockcroft-Gault) 40.0 Glucose Level 110mg/dL (70-99) Calcium Level 8.3mg/dL (8.5-10.1) Medications Current Medications Ondansetron HCl (Zofran) 4 mg STK-MED ONCE .ROUTE ; Start 08/07/16 at 00:23; Stop 08/07/16 at 00:24; Status DC Morphine Sulfate 4 mg 4 mg STK-MED ONCE .ROUTE ; Start 08/07/16 at 00:24; Stop 08/07/16 at 00:25; Status DC Sodium Chloride (Iv Sodium Chloride 0.9% 1000ml Bag) 1,000 ml @ 1,000 mls/hr Q1H IV Last administered on 08/07/16 00:28; Start 08/07/16 at 00:23; Stop 03/15 at 01:22; Status DC Ondansetron HCl (Zofran) 4 mg 1X ONCE IV Last administered on 08/07/16 00:27 ; Start 08/07/16 at 00:30; Stop 08/07/16 at 00:32; Status DC Morphine Sulfate 4 mg 1X ONCE IV Last administered on 08/07/16 00:28; Start 08/07/16 at 00:30; Stop 08/07/16 at 00:32; Status DC Ketorolac Tromethamine (Toradol) 15 mg 1X ONCE IV Last administered on 02:06; Start 08/07/16 at 02:00; Stop 08/07/16 at 02:01; Status DC Hydromorphone HCl (Dilaudid) 0.5 mg 1X ONCE IV Last administered on 08/07/16 02:06; Start 08/07/16 at 02:00; Stop 08/07/16 at 02:01; Status DC Ondansetron HCl (Zofran) 4 mg PRN Q8HRS PRN IV NAUSEA/VOMITING; Start 08/07/16 at 02:15; Stop 08/08/16 at 02:14; Status DC Fentanyl Citrate 50 mcg 50 mcg PRN Q2HR PRN IV PAIN Last administered on 11:35; Start 08/07/16 at 02:15; Stop 08/08/16 at 02:14; Status DC Sodium Chloride (Iv Sodium Chloride 0.9% 1000ml Bag) 1,000 ml @ 100 mls/hr Q10H IV Last administered on 08/07/16 19:51; Start 08/07/16 at 02:15; Stop 04/14 at 02:14; Status DC Acetaminophen (Tylenol) 650 mg PRN Q4HRS PRN PO FEVER; Start 08/07/16 at 02:15 ; Stop 08/08/16 at 02:14; Status DC Tamsulosin HCl (Flomax) 0.4 mg 1X ONCE PO Last administered on 08/07/16 02:13 ; Start 08/07/16 at 02:15; Stop 08/07/16 at 02:16; Status DC Ondansetron HCl (Zofran) 4 mg PRN Q6HRS PRN IV NAUSEA/VOMITING; Start 08/07/16 at 11:30; Stop 08/08/16 at 11:29 Fentanyl Citrate (Fentanyl 2ml Vial) 25 mcg PRN Q5MIN PRN IV MILD PAIN; Start 08/07/16 at 11:30; Stop 08/08/16 at 11:29 Fentanyl Citrate (Fentanyl 2ml Vial) 50 mcg PRN Q5MIN PRN IV MODERATE PAIN; Start 08/07/16 at 11:30; Stop 08/08/16 at 11:29 Morphine Sulfate 1 mg 1 mg PRN Q10MIN PRN IV SEVERE PAIN; Start 08/07/16 at 11: 30; Stop 08/08/16 at 11:29 Lactated Ringer's (Iv Lactated Ringers) 1,000 ml @ 30 mls/hr Q24H IV ; Start at 11:25; Stop 08/07/16 at 23:24; Status DC Lidocaine HCl 2 ml PRN 1X PRN ID PRIOR TO IV START; Start 08/07/16 at 11:30; Stop 08/08/16 at 11:29 Hydromorphone HCl (Dilaudid) 0.5 mg PRN Q10MIN PRN IV SEV PAIN, Second choice; Start 08/07/16 at 11:30; Stop 08/08/16 at 11:29 Prochlorperazine Edisylate (Compazine) 5 mg PACU PRN PRN IV NAUSEA, MRX1; Start 08/07/16 at 11:30; Stop 08/08/16 at 11:29 Iohexol 50 ml 50 ml STK-MED ONCE .ROUTE ; Start 08/07/16 at 13:29; Stop at 13:30; Status DC Propofol (Diprivan) 20 ml @ As Directed STK-MED ONCE IV ; Start 08/07/16 at 13: 55; Stop 08/07/16 at 13:56; Status DC Famotidine (Pepcid) 20 mg STK-MED ONCE .ROUTE ; Start 08/07/16 at 13:55; Stop at 13:56; Status DC Ondansetron HCl (Zofran) 4 mg STK-MED ONCE .ROUTE ; Start 08/07/16 at 13:55; Stop 08/07/16 at 13:56; Status DC Fentanyl Citrate (Fentanyl 2ml Vial) 100 mcg STK-MED ONCE .ROUTE ; Start at 13:58; Stop 08/07/16 at 13:59; Status DC Lidocaine HCl (Lidocaine HCl 2% Abboject) 100 mg STK-MED ONCE .ROUTE ; Start 03/15 at 13:59; Stop 08/07/16 at 14:00; Status DC Acetaminophen (Tylenol) 325 mg PRN Q6HRS PRN PO MILD PAIN / TEMP; Start at 14:00 Acetaminophen/ Hydrocodone Bitart (Lortab 5/325) 1 tab PRN Q6HRS PRN PO MODERATE TO SEVERE PAIN Last administered on 08/07/16t 22:26; Start 08/07/16 at 14:00 Hydralazine HCl (Apresoline) 10 mg PRN Q4HRS PRN IVP ELEVATED BP, SEE COMMENTS ; Start 08/07/16 at 14:00 Ondansetron HCl (Zofran) 4 mg PRN Q8HRS PRN IV NAUSEA/VOMITING; Start 08/07/16 at 14:00 Albuterol Sulfate (Ventolin Neb Soln) 2.5 mg PRN Q4HRS PRN NEB SHORTNESS OF BREATH; Start 08/07/16 at 14:00 Aspirin (Ecotrin) 325 mg DAILYWBKFT PO Last administered on 08/08/16 08:52; Start 08/07/16 at 14:30 Fish Oil 1000 mg 1,000 mg DAILY PO Last administered on 08/08/16 08:52; Start 08/08/16 at 09:00 Levofloxacin/ Dextrose (LEVAQUIN 500mg PREMIX) 100 ml @ 100 mls/hr 1X PREOP IV ; Start 08/07/16 at 14:30; Stop 08/08/16 at 18:00 Ephedrine Sulfate (Akovaz) 50 mg STK-MED ONCE .ROUTE ; Start 08/07/16 at 15:10; Stop 08/07/16 at 15:11; Status DC Dexamethasone Sodium Phosphate (Decadron) 20 mg STK-MED ONCE .ROUTE ; Start 03/15 at 15:10; Stop 08/07/16 at 15:11; Status DC Sevoflurane (Ultane) 15 ml STK-MED ONCE IH ; Start 08/07/16 at 15:26; Stop 08/07 at 15:27; Status DC Levofloxacin/ Dextrose (LEVAQUIN 500mg PREMIX) 500 mg STK-MED ONCE IV ; Start at 14:30; Stop 08/08/16 at 08:24; Status DC Active Scripts Active Reported Aspirin Buffered 325 Mg Tab (Aspirin/Calcium Carbonate/Mag) 325 Mg Tablet 325 Mg PO DAILY Fish Oil 1,400 Mg Softgel (Hubbell-3/Dha/Epa/Fish Oil) 1 Each Capsule. 1 Each PO DAILY Losartan-Hctz 100-25 Mg Tab (Losartan/Hydrochlorothiazide) 1 Each Tablet DAILY Gemfibrozil 600 Mg Tablet BID Vitals/I & O Vital Sign - Last 24 Hours 08/07/16 08/07/16 08/07/16 08/07/16 11:22 11:35 12:05 14:02 Temp 97.7 97.5 97.7 97.5 Pulse 59 56 Resp 18 14 18 17 B/P 139/71 144/70 Pulse Ox 95 95 95 O2 Delivery Room Air Room Air 4/11/08/07/16 08/07/16 08/07/16 15:38 15:38 15:53 16:02 Temp 97.1 97.1 Pulse 71 66 Resp 16 18 B/P 150/73 150/71 Pulse Ox 98 94 O2 Delivery Simple Mask Mask Room Air Room Air O2 Flow Rate 8 10 08/07/16 08/07/16 08/07/16 08/07/16 16:08 16:30 16:52 17:05 Temp 97.7 97.7 Pulse 62 58 58 61 Resp 18 18 18 18 B/P 140/76 138/72 146/70 144/75 Pulse Ox 94 91 92 90 O2 Delivery Room Air 08/07/16 08/07/16 08/07/16 08/07/16 17:25 17:55 18:20 18:50 Pulse 64 68 63 74 Resp 18 18 18 18 B/P 143/71 140/79 143/77 153/82 Pulse Ox 90 89 91 90 08/07/16 08/07/16 08/07/16 08/08/16 19:30 20:00 23:13 03:00 Temp 98.4 97.7 97.6 98.4 97.7 97.6 Pulse 71 67 56 Resp 20 19 19 B/P 146/73 129/61 142/68 Pulse Ox 91 93 96 O2 Delivery Room Air Room Air Room Air Room Air 08/08/16 08/08/16 07:00 08:00 Temp 97.9 97.9 Pulse 55 Resp 20 B/P 133/85 Pulse Ox 95 O2 Delivery Room Air Room Air O2 Flow Rate 10.0 Intake and Output 08/07/16 08/07/16 08/08/16 15:00 23:00 07:00 Intake Total 0 ml 1050 ml 800 ml Output Total 0 ml 750 ml Balance 0 ml 1050 ml 50 ml ALF CHU MD Aug 08, 2016 10:52
[2016-08-08 11:00] VITALS: BP 143/62
[2016-08-08] MEDS: IV NORMAL SALINE 1000ML BAG 1,000 ML IV SCH ×2 (14:15→22:15)
[2016-08-08 15:00] VITALS: BP 137/63
[2016-08-08 19:00] VITALS: BP_SYST 141; BP_SYST 150; BP_DIAS 69; BP_DIAS 78
[2016-08-08 23:00] VITALS: BP 166/77
[2016-08-09 02:48] VITALS: BP 151/82
[2016-08-09 06:07] LABS: BASO % 0 % (0-3); EOS % 2 % (0-3); HEMATOCRIT 36.7 % (39.0-53.0); HEMOGLOBIN 12.3 g/dL (13.0-17.5); LYMPH # 1.6 x10^3/uL (1.0-4.8); LYMPH % 12 % (24-48); MEAN CORPUSCULAR HEMOGLOBIN 29 pg (25-35); MEAN CORPUSCULAR HGB CONC 33 g/dL (31-37); MEAN CORPUSCULAR VOLUME 88 fL (79-100); MONO % 11 % (0-9); NEUT % 75 % (31-73); PLATELET COUNT 368 x10^3/uL (140-400); RED BLOOD COUNT 4.17 x10^6/uL (4.30-5.70); RED CELL DISTRIBUTION WIDTH 15.1 % (11.5-14.5); WHITE BLOOD COUNT 12.9 x10^3/uL (4.0-11.0)
[2016-08-09] MEDS: IV NORMAL SALINE 1000ML BAG 1,000 ML IV SCH (06:15)
[2016-08-09 06:40] LABS: CALCIUM 8.7 mg/dL (8.5-10.1); CREATININE 1.4 mg/dL (0.7-1.3); GFR 50.1; POTASSIUM 4.8 mmol/L (3.5-5.1)
[2016-08-09 07:00] VITALS: BP 150/108
--- NOTE | 2016-08-09 08:59 | PDOC ---
Provider Note Provider Note Urology: Patient s/p cysto stent, calculus pushed into renal pelvis Creat. slowly improving Suggest: discussed plan with patient regarding outpatient shock-wave lithotripsy will call him to schedule. Ok with Urology for him to return to work, told him to expect blood in urine with stent. He appears to understand and agreeable, he is to drink 8-10 12oz glasses of water with stent. MORGAN HENDERSON DO Aug 09, 2016 08:59
[2016-08-09] MEDS: ASPIRIN ENTERIC COATED 325 MG TABLET.DR. PO SCH (10:30)
[2016-08-09] MEDS: OMEGA-3 FATTY ACIDS/FISH OIL 1,000 MG CAPSULE. PO SCH (10:30)
[2016-08-09 10:38] VITALS: BP 146/70
[2016-08-09] MEDS ORDERED: AMLO10TA2 PO (11:10)
[2016-08-09 12:00] VITALS: BP 146/70
[2016-08-09] MEDS ORDERED: AMLODIPINE BESYLATE 10 MG TABLET. PO SCH (12:00)
--- NOTE | 2016-08-09 21:58 | DS ---
DATE OF DISCHARGE: 08/09/2016 DISCHARGE DIAGNOSES: 1. Right intractable flank pain due to right-sided ureter stone with mild hydronephrosis. 2. Acute kidney injury, possible due to obstructive uropathy, resolved. 3. Multiple nonobstructive renal stones, bilateral. 4. Multiple cystic lesions. 5. Chronic obstructive pulmonary disease. 6. Hypertension. 7. Prediabetes. 8. Pulmonary nodules seen on CT, incidental findings. Need outpatient followup with her primary care doctor in few months. BRIEF HOSPITAL COURSE: A 71-year-old male patient with prior history of hypertension, presented to the ER with complaints of right-sided flank pain which is acute in nature along with hematuria. He was admitted to the hospital for pain control and he was evaluated by Dr. Batista. The patient underwent cystoscopy with right retrograde pyelogram and placement of indwelling right ureteral stent placement. Post-procedure, the patient had mild hematuria; however, which has been resolved with IV hydration. During hospitalization, the patient had a mild vasomotor nephropathy, which had resolved with IV hydration. The patient might have chronic kidney disease which needs to be followed up with primary care doctor. His blood pressure medications suggest that hydrochlorothiazide has been held and started on amlodipine and he is recommended to follow up with primary care doctor and adjust his medications. DISCHARGE EXAMINATION: GENERAL: Alert, oriented x 3. HEART: S1, S2 present. CHEST: Clear. ABDOMEN: Soft, nontender, no organomegaly. EXTREMITIES: No edema. DISCHARGE DISPOSITION: Home. DISCHARGE CONDITION: Stable. FOLLOWUP: With primary care doctor for maintenance, for further continued care of hypertension and chronic medical problems. DISCHARGE DISPOSITION: Home. Total time spent for discharge is 35 minutes for patient education, counseling, and coordination of care. DISCHARGE MEDICATIONS: New script sent to pharmacy, education provided to the patient. ALF CHU MD DR: SELENA/bartolo JOB#: [id number] / [id number] DAVIDD
== END 2016-08-09 12:09 | disposition home or self-care (01) | DRG 694 ==
LOC: ER 00:06 → 6 SOUTH 01:44
PROVIDERS: ADMIT Internal Medicine; ATTEND Internal Medicine
PROC: BT1D1ZZ Fluoroscopy of Right Kidney, Ureter and Bladder using Low Osmolar Contrast (ICD-10-PCS; 2016-08-07)
PROC: 0T768DZ Dilation of Right Ureter with Intraluminal Device, Via Natural or Artificial Opening Endoscopic (ICD-10-PCS; principal; 2016-08-07 15:00)
DX: N13.2 Hydronephrosis with renal and ureteral calculous obstruction (principal); N17.0 Acute kidney failure with tubular necrosis; N13.9 Obstructive and reflux uropathy, unspecified; J44.9 Chronic obstructive pulmonary disease, unspecified; E11.9 Type 2 diabetes mellitus without complications; E78.00 Pure hypercholesterolemia, unspecified; E78.5 Hyperlipidemia, unspecified; I10 Essential (primary) hypertension; Z87.442 Personal history of urinary calculi; Z87.891 Personal history of nicotine dependence; Z82.49 Family history of ischemic heart disease and other diseases of the circulatory system; R31.9 Hematuria, unspecified
CPT/HCPCS: 36415; 74000; 74176; 74420; 80048; 80053; 81001; 82947; 83690; 85027; 96361; 96374; 96375; C1769; C2617; J1100; J1170; J1885; J1956; J2270; J2405; J2704; J3010; J7030; Q9967; S0028; 99285-25